=== PATIENT | male | born 1980 | race Two or more races ===

== ENCOUNTER 2021-05-30 19:35 | Inpatient (IN) | payer OTHER ==
[~2021-05-30] VITALS: Ht 170.2 cm; Wt 74.8 kg
[2021-05-30] MEDS ORDERED: PANADOL (20:41)
[2021-05-31] MEDS ORDERED: TYLENOL325 M1 (09:02)
[2021-05-31] MEDS ORDERED: PANADOL EXTRA500 MG (09:02)
[2021-05-31] MEDS ORDERED: PERCOCET 5-3251 EACH PO (15:01)
[2021-05-31] MEDS ORDERED: RECTICARE30 GM TOP (15:02)
== END 2021-05-31 17:25 | disposition home or self-care (01) | DRG 349 ==
LOC: ER 19:35 → O/R 22:58 → SEC-K 22:58 → O/R 05-31 12:10
PROVIDERS: ADMIT Surgery; ATTEND Surgery
PROC: 06BY4ZC Excision of Hemorrhoidal Plexus, Percutaneous Endoscopic Approach (ICD-10-PCS; principal; 2021-05-30)
DX: K64.3 Fourth degree hemorrhoids (principal); Z20.822 Contact with and (suspected) exposure to COVID-19